=== PATIENT | female | born 1990 | race Caucasian/White ===

== ENCOUNTER 2017-08-19 19:31 | Emergency (ER) | payer OTHER ==
[2017-08-19 19:35] VITALS: BMI 38.1
--- NOTE | 2017-08-19 19:41 | PDOC ---
History of Present Illness - General Chief Complaint: Vaginal Bleeding Stated Complaint: VAGINAL BLEEDING (10WKS ) Time Seen by Provider: 08/19/17 19:40 - History of Present Illness Initial Comments: 08/19/17 20:31 The patient is a 27 year old 10 week female with no significant PMH who presents for evaluation of vaginal bleeding. The patient reports onset of intermittent vaginal spotting throughout the day prompting her presentation to the ED for further evaluation. She notes that she is in the process of transitioning care to her new OB and has not been worked up for her current yet. LMP 06/08/17. She notes that she has had a miscarriage in the past as well as 2 elective abortions. She otherwise denies fevers, chills, SOB , chest pain, nausea, vomiting, abdominal pain, or changes with urination or bowel movements. She notes that she is currently being treated for a UTI with macrobid. Past History - Past Medical History Allergies/Adverse Reactions: Allergies Allergy/AdvReac Type Severity Reaction Status Date / Time No Known Allergies Allergy Verified 08/19/17 19:35 Home Medications: Ambulatory Orders NK [No Known Home Medication] 08/19/17 - Suicide/Smoking/Psychosocial Hx Smoking History: Never smoked Have you smoked in the past 12 months: No Information on smoking cessation initiated: No Hx Alcohol Use: No Drug/Substance Use Hx: No Review of Systems - Review of Systems Comments:: 08/19/17 20:41 Constitutional: No fevers, chills, fatigue, malaise HEENT: No Rhinorrhea, nasal congestion, visual changes Cardiovascular: No chest pain, syncope, palpitations, lightheadedness Respiratory: No Cough, SOB, Hemoptysis, Gastrointestinal: No Abdominal pain, Nausea, Vomiting, Constipation, Diarrhea, Melena Genitourinary: Vaginal Bleeding. No Dysuria, Frequency, Urgency, Hesitancy, Hematuria, Flank pain Musculoskeletal: No Myalgia, arthralgia Skin: No rashes, itching, bruising, pallor Neurologic: No Headache, Dizziness, Numbness, Weakness, or Tingling Psychiatric: No Hallucinations. No SI or HI *Physical Exam - Vital Signs Last Vital Signs Temp Pulse Resp BP Pulse Ox 98.0 F 70 16 131/66 100 08/19/17 19:33 08/19/17 19:33 08/19/17 19:33 08/19/17 19:33 08/19/17 19:33 - Physical Exam Comments: 08/19/17 20:42 General Appearance: Nourished. No Apparent Distress HEENT: No Pharyngeal Erythema, Tonsillar Exudate, Tonsillar Erythema Neck: No Cervical Lymphadenopathy Respiratory/Chest: Lungs Clear, Normal Breath Sounds. No Crackles, Rales, Rhonchi, Wheezing Cardiovascular: Regular Rhythm, Regular Rate. No Murmur, Gallops, Rubs Gastrointestinal/Abdominal: Normal Bowel Sounds, Soft. No Guarding, Rebound, Tenderness Pelvic Exam: Normal External Exam. No blood noted in the vaginal vault. Closed Cervical Os. No CMT, No Adenexal Tenderness. Musculoskeletal: No CVA Tenderness Extremity: Normal Capillary Refill Integumentary: Normal Color, Dry, Warm Neurologic: Fully Oriented, Alert, Normal Mood/Affect, Normal Response, ED Treatment Course - LABORATORY CBC & Chemistry Diagram: 08/19/17 20:08 08/19/17 20:08 Medical Decision Making - Medical Decision Making 08/19/17 20:43 The patient is a 27 year old 10 week female with no significant PMH who presents for evaluation of vaginal bleeding. Differential includes but is not limited to: Threatened , Physiological Bleeding, Infectious, Metabolic derangement. Given the patient's history and physical exam, we will obtain a cbc, cmp, coags, type and screen, ua, beta quant, and transvaginal us to evaluate further. We will continue to monitor and reassess while here in the ED. 08/19/17 23:59 CBC, cmp, ua are unremarkable. Transvaginal US shows multiple gestational sacs with a possible yolk sac without any identifiable anatomy as read by our radiologist. The patient continues to remain asymptomatic at this time. She will need to follow up with her OB or return to the ER for repeat beta-quant testing. We are comfortable discharging the patient home at this time with ob follow up. We discussed the results, plan, and return precautions with the patient who voiced understanding and is agreeable with the plan. *DC/Admit/Observation/Transfer Diagnosis at time of Disposition: Vaginal bleeding - Discharge Dispostion Disposition: HOME Condition at time of disposition: Stable Decision to Admit order: No - Referrals Referrals: Laura Webb MD [Primary Care Provider] - - Patient Instructions Printed Discharge Instructions: DI for Vaginal Bleeding During Additional Instructions: Please return to the ER if you experience concerning or worsening symptoms including worsening vaginal bleeding or abdominal pain. Your lab results were normal here in the ER and your US results show a yolk sac and gestational sac, but no anatomy is noted. You will need to either come back to the ER or follow up with your OB on Monday to have your Beta HCG rechecked and to be re-evaluated. Please call to schedule a follow up appointment with your OB within 1-2 days. - Post Discharge Activity
[2017-08-19 20:23] LABS: BASO % 0.5 % (0-2.0); EOS % 3.3 % (0-4.5); HEMOGLOBIN 12.4 GM/dL (10.7-15.3); LYMPH % 30.5 % (8-40); MCH 26.6 pg (25.7-33.7); MCHC 32.7 g/dl (32.0-36.0); MEAN CELL VOLUME 81.4 fl (80-96); MONO % 5.2 % (3.8-10.2); NEUT % 60.5 % (42.8-82.8); PLATELET COUNT 209 K/MM3 (134-434); RBC 4.68 M/mm3 (3.60-5.2); RDW 14.5 % (11.6-15.6); WHITE BLOOD COUNT 10.7 K/mm3 (4.0-10.0)
[2017-08-19 20:24] LABS: URINE APPEARANCE CLEAR; URINE BILIRUBIN NEGATIVE (<2.0 mg/dL); URINE COLOR YELLOW; URINE GLUCOSE (UA) NEGATIVE (NEGATIVE); URINE KETONE NEGATIVE (NEGATIVE); URINE LEUK ESTERASE NEGATIVE (NEGATIVE); URINE NITRITE NEGATIVE (NEGATIVE); URINE PROTEIN NEGATIVE (NEGATIVE); URINE UROBILINOGEN NEGATIVE mg/dL (0.2-1.0)
[2017-08-19 20:31] LABS: INR 1.01 (0.82-1.09); PROTHROMBIN TIME (PATIENT) 11.4 SEC (9.7-13.0)
[2017-08-19 20:34] LABS: ACTIVATED PTT 28.1 SECONDS (25.2-36.5)
[2017-08-19 20:42] LABS: ALBUMIN 3.5 g/dl (3.4-5.0); ALK PHOS 53 U/L (45-117); ANION GAP 7 (8-16); BILIRUBIN,TOTAL 0.3 mg/dL (0.2-1.0); BLOOD UREA NITROGEN 9 mg/dL (7-18); CALCIUM 8.8 mg/dL (8.5-10.1); CHLORIDE 104 mmol/L (98-107); CO2 27 mmol/L (21-32); CREATININE 0.6 mg/dL (0.55-1.02); GLUCOSE,RANDOM 82 mg/dL (74-106); POTASSIUM 3.8 mmol/L (3.5-5.1); SGOT/AST 13 U/L (15-37); SGPT/ALT 18 U/L (12-78); SODIUM 138 mmol/L (136-145); TOT PROT 7.5 g/dl (6.4-8.2)
--- NOTE | 2017-08-19 22:27 | PDOC ---
Attending Attestation - Resident Resident Name: Alexandro Dixon - ED Attending Attestation I have performed the following: I have examined & evaluated the patient, The case was reviewed & discussed with the resident, I agree w/resident's findings & plan, Exceptions are as noted - HPI HPI: 08/19/17 22:05 Ms Machuca is an otherwise healthy 27 [id number] 10 week female (LMP ) who presents to the ER for evaluation of vaginal bleeding. (+) intermittent vaginal spotting throughout the day Not saturating pads No chest pain, no lightheadedness No fevers or chills She is currently being treated for a UTI with macrobid. - Physicial Exam PE: 08/19/17 22:27 General Appearance: Nourished. No Apparent Distress Respiratory/Chest: Lungs Clear, Normal Breath Sounds. Cardiovascular: Regular Rhythm, Regular Rate. No Murmur, Gallops, Rubs Gastrointestinal/Abdominal: Normal Bowel Sounds, Soft. No Guarding, Rebound, Tenderness Pelvic Exam: Normal External Exam. No blood noted in the vaginal vault. Closed Cervical Os. No CMT, No Adenexal Tenderness. Musculoskeletal: No CVA Tenderness Extremity: Normal Capillary Refill Integumentary: Normal Color, Dry, Warm Neurologic: Fully Oriented, Alert, Normal Mood/Affect, Normal Response - Medical Decision Making 08/19/17 22:29 Ms Machuca is a 27 yo F with vaginal bleeding Pt have labs, UA, Transvaginal US 08/19/17 22:30 Laboratory Tests 08/19/17 08/19/17 08/19/17 20:08 20:08 20:08 WBC 10.7 H Hgb 12.4 Hct 38.0 Plt Count 209 INR 1.01 Sodium 138 Potassium 3.8 Chloride 104 Carbon Dioxide 27 BUN 9 Creatinine 0.6 Random Glucose 82 Beta HCG, Quant Urine Blood Urine Nitrite Ur Leukocyte Esterase 08/19/17 08/19/17 20:08 20:08 WBC Hgb Hct Plt Count INR Sodium Potassium Chloride Carbon Dioxide BUN Creatinine Random Glucose Beta HCG, Quant 67185.7 Urine Blood Negative Urine Nitrite Negative Ur Leukocyte Esterase Negative 08/19/17 22:31 Laboratory Tests 08/19/17 20:08 Blood Type A POSITIVE 08/19/17 23:49 US: complex cystic structure in the endometrium, no anatomy, implantation bleed No ovarian pathology Will discharge to home Pt will follow up with her [facility] in 2 days OR come to the ER Return before then if saturating 2 pads/hour x 2 hours Clinical impression: threatened ab vs. early
[2017-08-19 22:46] VITALS: BP 120/69; PULSE 86; TEMP 98.1
== END 2017-08-19 23:57 | disposition home or self-care (01) ==
LOC: JER 19:31
DX: O26.891 Other specified pregnancy related conditions, first trimester (principal); O46.91 Antepartum hemorrhage, unspecified, first trimester; Z3A.10 10 weeks gestation of pregnancy
CPT/HCPCS: 36415; 76817-TC; 80053; 81003; 84702; 85025; 85610; 85730; 86850; 86900; 86901; 99283-25

== ENCOUNTER 2017-09-09 13:48 | Inpatient (IN) | payer OTHER ==
--- NOTE | 2017-09-09 14:04 | PDOC ---
History of Present Illness - General Stated Complaint: ABDOMINAL PAIN Time Seen by Provider: 09/09/17 14:04 History Source: Patient Exam Limitations: No Limitations - History of Present Illness Initial Comments: 09/09/17 14:26 The patient is a 27F with no PMH who presents to the ER with acute onset RLQ pain. The patient states that she had a medical with misoprostol 1 week ago. Last night, she describes an acute onset RLQ pain which is sharp, constant, and worsening, nonradiating, not exacerbated or alleviated by any factors including positioning. She states that she has an appetite but cannot eat anything. She denies fever, chills, nausea, vomiting, vaginal discharge, vaginal cramping. Past History - Past Medical History Allergies/Adverse Reactions: Allergies Allergy/AdvReac Type Severity Reaction Status Date / Time No Known Allergies Allergy Verified 09/09/17 14:12 Home Medications: Ambulatory Orders NK [No Known Home Medication] 08/19/17 - Suicide/Smoking/Psychosocial Hx Smoking History: Never smoked Have you smoked in the past 12 months: No Hx Alcohol Use: No Drug/Substance Use Hx: No Review of Systems - Review of Systems Able to Perform ROS?: Yes Comments:: 09/09/17 15:07 GENERAL/CONSTITUTIONAL: No fever or chills. No weakness. HEAD, EYES, EARS, NOSE AND THROAT: No change in vision. No ear pain or discharge. No sore throat. CARDIOVASCULAR: No chest pain, palpitations, or lightheadedness. RESPIRATORY: No cough, wheezing, shortness of breath, or hemoptysis. GASTROINTESTINAL: Positive for abdominal pain. No nausea, vomiting, diarrhea, constipation. GENITOURINARY: Positive for vaginal spotting. No dysuria, frequency, hematuria, or change in urination. MUSCULOSKELETAL: No joint or muscle swelling or pain. No neck or back pain. SKIN: No rash or lesions. NEUROLOGIC: No headache, numbness, tingling, weakness, loss of consciousness, or change in strength/sensation. ENDOCRINE: No increased thirst. No abnormal weight change. HEMATOLOGIC/LYMPHATIC: No anemia, easy bleeding, or history of blood clots. ALLERGIC/IMMUNOLOGIC: No hives or skin allergy. Is the patient limited Greek proficient: No *Physical Exam - Physical Exam Comments: 09/09/17 15:09 GENERAL: Well developed, well nourished. Awake and alert. No acute distress. HEENT: Normocephalic, atraumatic. Hearing grossly normal. Moist mucous membranes. PERRLA, EOMI. No conjunctival pallor. Sclera are non-icteric. NECK: Supple. Full ROM. CARDIOVASCULAR: Regular rate and rhythm. No murmurs, rubs, or gallops. PULMONARY: No evidence of respiratory distress. Lungs clear to auscultation bilaterally. No wheezing, rales or rhonchi. ABDOMINAL: Soft. TTP over RLQ and McBurney's point. Negative Jett's sign. Non- distended. No rebound or guarding. GENITOURINARY: No CVA tenderness bilaterally. PELVIC: Normal external genitalia. No CMT. No midline tenderness. Mild R adnexal tenderness. No L adnexal tenderness. MUSCULOSKELETAL: Normal range of motion at all joints. No bony deformities or tenderness. EXTREMITIES: No cyanosis. No clubbing. No edema. No calf tenderness or swelling. SKIN: Warm and dry. Normal capillary refill. No rashes. No jaundice. NEUROLOGICAL: Alert, awake, appropriate. Cranial nerves 2-12 intact. Normal speech. Gait is normal without ataxia. PSYCHIATRIC: Cooperative. Good eye contact. Appropriate mood and affect. ED Treatment Course - LABORATORY CBC & Chemistry Diagram: 09/09/17 14:20 09/09/17 14:20 Medical Decision Making - Medical Decision Making 09/09/17 15:11 The patient is a 27F who has recently had a medical 1 week ago. Her RLQ is likely 2/2 to a TOLL PATROLMAN pathology vs appendicitis (lower suspicion). Pending labs and repeat transvaginal US. US on 09/05 (4 days ago) reveals heterogenous content in uterus, described as blood by radiologist. Pt resting comfortably and not requiring pain control 09/09/17 18:44 US negative. Will give pain control as pain has worsened. Placed pt for CTAP as there is mild adnexal tenderness and her tenderness is more on McBurney's point. 09/09/17 20:05 Pt signed out to Dr. Corrigan, pending CTAP. *DC/Admit/Observation/Transfer - Referrals Referrals: Laura Webb MD [Primary Care Provider] - - Patient Instructions - Post Discharge Activity
[2017-09-09 14:30] LABS: BASO % 1.3 % (0-2.0); HEMATOCRIT 37.8 % (32.4-45.2); HEMOGLOBIN 12.3 GM/dL (10.7-15.3); LYMPH % 29.1 % (8-40); MCH 26.3 pg (25.7-33.7); MCHC 32.7 g/dl (32.0-36.0); MEAN CELL VOLUME 80.5 fl (80-96); MEAN PLT VOLUME 9.9 fl (7.5-11.1); MONO % 4.5 % (3.8-10.2); NEUT % 62.1 % (42.8-82.8); PLATELET COUNT 233 K/MM3 (134-434); RBC 4.69 M/mm3 (3.60-5.2); RDW 13.9 % (11.6-15.6); WHITE BLOOD COUNT 10.8 K/mm3 (4.0-10.0)
[2017-09-09 14:32] LABS: URINE APPEARANCE CLEAR; URINE BILIRUBIN NEGATIVE (<2.0 mg/dL); URINE COLOR YELLOW; URINE GLUCOSE (UA) NEGATIVE (NEGATIVE); URINE KETONE NEGATIVE (NEGATIVE); URINE LEUK ESTERASE NEGATIVE (NEGATIVE); URINE NITRITE NEGATIVE (NEGATIVE); URINE PROTEIN NEGATIVE (NEGATIVE); URINE UROBILINOGEN NEGATIVE mg/dL (0.2-1.0)
[2017-09-09 14:34] LABS: EPI CELLS RARE /HPF (FEW); URINE BACTERIA RARE /hpf (NONE SEEN); URINE MUCUS RARE
--- NOTE | 2017-09-09 14:47 | PDOC ---
Attending Attestation - Resident Resident Name: Ambrocio Jennings - ED Attending Attestation I have performed the following: I have examined & evaluated the patient, The case was reviewed & discussed with the resident, I agree w/resident's findings & plan, Exceptions are as noted - HPI HPI: 27 yo F history of medical (misoprostol) 1 week ago presents with RLQ abd pain x1 day. No other associated symptoms. She is tearful at times when talking about the , stating she felt unsupported by friends. She has had normal appetite, although some foods are making her feel nauseous. She presented to an urgent care prior to arrival, they referred her to ED for workup , as they do not have imaging capabilities. - Physicial Exam PE: GENERAL: Awake, alert, and fully oriented, in no acute distress. Tearful at times. HEAD: No signs of trauma EYES: PERRLA, EOMI, sclera anicteric, conjunctiva clear ENT: Auricles normal inspection, hearing grossly normal, nares patent, oropharynx clear without exudates. Moist mucosa NECK: Normal ROM, supple, no lymphadenopathy, JVD, or masses LUNGS: Breath sounds equal, clear to auscultation bilaterally. No wheezes, and no crackles HEART: Regular rate and rhythm, normal S1 and S2, no murmurs, rubs or gallops ABDOMEN: Soft, +RLQ tenderness with guarding, no rebound. Normoactive bowel sounds. No masses EXTREMITIES: Normal range of motion, no edema. No clubbing or cyanosis. No cords, erythema, or tenderness NEUROLOGICAL: Cranial nerves II through XII grossly intact. Normal speech, normal gait SKIN: Warm, Dry, normal turgor, no rashes or lesions noted. - Medical Decision Making 09/09/17 14:51 Pt is 1 week s/p medical (misoprostol) presents with RLQ abd pain. Denies N/V/D, f/c. DDx includes retained POCs, sequelae of , and appendicitis. Appendicitis would be lower on the differential based on the presentation, however, will consider if sono is wnl.
[2017-09-09 14:48] LABS: ALBUMIN 3.2 g/dl (3.4-5.0); ANION GAP 6 (8-16); BLOOD UREA NITROGEN 10 mg/dL (7-18); CALCIUM 8.7 mg/dL (8.5-10.1); CHLORIDE 109 mmol/L (98-107); CO2 27 mmol/L (21-32); GLUCOSE,RANDOM 87 mg/dL (74-106); SODIUM 142 mmol/L (136-145)
[2017-09-09 14:49] LABS: SGPT/ALT 19 U/L (12-78)
[2017-09-09 14:51] LABS: BILIRUBIN,TOTAL 0.4 mg/dL (0.2-1.0); CREATININE 0.7 mg/dL (0.55-1.02); TOT PROT 7.2 g/dl (6.4-8.2)
[2017-09-09 14:54] LABS: ALK PHOS 59 U/L (45-117)
[2017-09-09 14:55] LABS: SGOT/AST 31 U/L (15-37)
[2017-09-09] MEDS ORDERED: ACETAMINOPHEN 1000 MG/100 ML VIAL (NON FORMULARY) IVPB ONE (18:34)
--- NOTE | 2017-09-09 20:03 | PDOC ---
*Physical Exam - Vital Signs Last Vital Signs Temp Pulse Resp BP Pulse Ox 98.3 F 77 18 111/57 100 09/09/17 14:08 09/09/17 14:08 09/09/17 14:08 09/09/17 14:08 09/09/17 14:08 ED Treatment Course - LABORATORY CBC & Chemistry Diagram: 09/09/17 14:20 09/09/17 14:20 - ADDITIONAL ORDERS Additional order review: Laboratory Results 09/09/17 09/09/17 09/09/17 14:20 14:20 14:20 Sodium 142 Potassium 5.0 Chloride 109 H Carbon Dioxide 27 Anion Gap 6 L BUN 10 Creatinine 0.7 Creat Clearance w eGFR > 60 Random Glucose 87 Calcium 8.7 Total Bilirubin 0.4 AST 31 ALT 19 Alkaline Phosphatase 59 Total Protein 7.2 Albumin 3.2 L Beta HCG, Quant 115.6 Urine Color Yellow Urine Appearance Clear Urine pH 5.0 D Ur Specific [place] 1.021 Urine Protein Negative Urine Glucose (UA) Negative Urine Ketones Negative Urine Blood 2+ H Urine Nitrite Negative Urine Bilirubin Negative Urine Urobilinogen Negative Ur Leukocyte Esterase Negative Urine WBC (Auto) 2 Urine RBC (Auto) 5 Ur Epithelial Cells Rare Urine Bacteria Rare Urine Mucus Rare Blood Type A POSITIVE Antibody Screen Negative 09/09/17 14:20 RBC 4.69 MCV 80.5 MCHC 32.7 RDW 13.9 MPV 9.9 Neutrophils % 62.1 Lymphocytes % 29.1 Monocytes % 4.5 Eosinophils % 3.0 Basophils % 1.3 - Medications Given in the ED: ED Medications Discontinued Medications Generic Name Dose Route Start Last Admin Trade Name Dulce Maria PRN Reason Stop Dose Admin Acetaminophen 1,000 mg 09/09/17 18:34 09/09/17 19:05 Ofirmev Injection - IVPB 09/09/17 18:35 1,000 mg ONCE ONE Administration Medical Decision Making - Medical Decision Making 09/09/17 20:[address] Jennings. Ms. Machuca is a 27 yo female w/ pmh of medical with misoprostol 1 week ago who presents for acute onset sharp RLQ pain. Patient also reported appetite but says she "cannot eat anything." 09/05 US revealed heterogeneous content in uterus thought to be blood; TVUS today negative. Repeat exam significant for continued RLQ pain at McBurney's point - IV tylenol given and patient currently pending CT abdomen for further evaluation / r/o appendicitis. 09/09/17 23:00 Patient reporting generalized relief from pain after tylenol. CT abdomen discussed with radiologist who identified acute appendicitis of tip of appendix w/ mild periappendiceal infection - early appendix performation could not be excluded. Surgery paged. Ancef / flagyl given for treatment. 09/09/17 23:52 Patient admitted for further evaluation. Discussed with surgery who will evaluate. *DC/Admit/Observation/Transfer Diagnosis at time of Disposition: Appendicitis Qualifiers: Appendicitis type: acute appendicitis Acute appendicitis type: unspecified acute appendicitis type Qualified Code(s): K35.80 - Unspecified acute appendicitis - Discharge Dispostion Decision to Admit order: Yes - Referrals Referrals: Laura Webb MD [Primary Care Provider] - - Patient Instructions - Post Discharge Activity
[2017-09-09] MEDS ORDERED: morphine CARPU-JECT 2 MG/1 ML DISP.SYRIN IVPUSH ONE (23:11)
[2017-09-09] MEDS ORDERED: MORPHINE SULFATE 2 MG/ML VIAL ONE (23:13)
[2017-09-09] MEDS ORDERED: ceFAZolin 2 GRAM PREMIX BAG IVPB ONE (23:15)
[2017-09-09 23:55] LABS: INR 1.09 (0.82-1.09); PROTHROMBIN TIME (PATIENT) 12.3 SEC (9.7-13.0)
[2017-09-09 23:58] LABS: ACTIVATED PTT 32.1 SECONDS (25.2-36.5)
[2017-09-10] MEDS ORDERED: ceFAZolin SODIUM 1 GM VIAL ONE (00:15)
[2017-09-10 02:09] VITALS: BMI 38.9
[2017-09-10] MEDS ORDERED: CEFTRIAXONE 1 GM in DEXTROSE 5%-WATER - 50 ML IVPB ONE (03:12)
[2017-09-10] MEDS ORDERED: SODIUM CHLORIDE 1,000 ML IV SCH (03:15)
[2017-09-10] MEDS ORDERED: MORPHINE SULFATE 2 MG/ML VIAL IVPUSH PRN ×2 (03:20→09:50)
--- NOTE | 2017-09-10 03:24 | HP ---
CHIEF COMPLAINT: RUQ pain PCP: HISTORY OF PRESENT ILLNESS: patient is a 27 y/o female with no past medical history who presents with R Uq pain. She states the pain began on monday. She took a motrin which helped a little but the pain returned on monday. She describes it as a constant pain that is no radiating. Patient denies any nausea or vomiting. The tylenol she was given today helped with the pain. She denies ever having pain like this in the past. She has no acute complaints. ER course was notable for: (1) Cefazolin/ metronidazole (2) (3) Recent Travel: PAST MEDICAL HISTORY: none PAST SURGICAL HISTORY: none Social History: Smoking: Alcohol: Drugs: Family History: Allergies No Known Allergies Allergy (Verified 09/09/17 14:12) HOME MEDICATIONS: Home Medications Medication Instructions Recorded NK [No Known Home Medication] 08/19/17 REVIEW OF SYSTEMS CONSTITUTIONAL: Absent: fever, chills, diaphoresis, generalized weakness, malaise HEENT: Absent: rhinorrhea, nasal congestion, throat pain, throat swelling, difficulty swallowing, mouth swelling, ear pain, eye pain, visual changes CARDIOVASCULAR: Absent: chest pain, syncope, palpitations, irregular heart rate, lightheadedness , RESPIRATORY: Absent: cough, shortness of breath, dyspnea with exertion, orthopnea, GASTROINTESTINAL:abdominal pain Rq pain Absent: abdominal distension, nausea, vomiting, diarrhea, constipation, melena, hematochezia GENITOURINARY: Absent: dysuria, frequency, urgency, hesitancy, hematuria, flank pain, genital pain MUSCULOSKELETAL: Absent: myalgia, arthralgia, joint swelling, back pain, neck pain SKIN: Absent: rash, itching, pallor PSYCHIATRIC: Absent: anxiety, depression, suicidal or homicidal ideation, hallucinations. PHYSICAL EXAMINATION Vital Signs - 24 hr 09/09/17 09/09/17 09/09/17 14:08 22:37 23:04 Temperature 98.3 F 98.1 F 97.9 F Pulse Rate 77 Pulse Rate [ 80 67 Apical] Respiratory 18 20 20 Rate Blood Pressure 111/57 Blood Pressure 118/62 121/74 [Right Arm] O2 Sat by Pulse 100 100 100 Oximetry (%) 09/09/17 23:59 Temperature 97.9 F Pulse Rate 69 Pulse Rate [ Apical] Respiratory 20 Rate Blood Pressure 108/64 Blood Pressure [Right Arm] O2 Sat by Pulse 99 Oximetry (%) GENERAL: Awake, alert, and fully oriented, in no acute distress. HEAD: Normal with no signs of trauma. NECK: Normal range of motion LUNGS: Breath sounds equal, clear to auscultation bilaterally. HEART: Regular rate and rhythm, ABDOMEN: Soft, not distended, tender to palpation RLQ, no rebound tenderness MUSCULOSKELETAL: Normal range of motion at all joints. No bony deformities or tenderness. LOWER EXTREMITIES: warm, well-perfused. No calf tenderness. No peripheral edema. PSYCHIATRIC: Cooperative. Good eye contact. Appropriate mood and affect. SKIN: Warm, dry, normal turgor, no rashes or lesions noted, normal capillary refill. Laboratory Results - last 24 hr 09/09/17 09/09/17 09/09/17 14:20 14:20 14:20 WBC 10.8 H RBC 4.69 Hgb 12.3 Hct 37.8 MCV 80.5 MCH 26.3 MCHC 32.7 RDW 13.9 Plt Count 233 MPV 9.9 Absolute Neuts (auto) 6.7 Neutrophils % 62.1 Lymphocytes % 29.1 Monocytes % 4.5 Eosinophils % 3.0 Basophils % 1.3 Nucleated RBC % 0 PT with INR INR PTT (Actin FS) Sodium 142 Potassium 5.0 Chloride 109 H Carbon Dioxide 27 Anion Gap 6 L BUN 10 Creatinine 0.7 Creat Clearance w eGFR > 60 Random Glucose 87 Calcium 8.7 Total Bilirubin 0.4 AST 31 ALT 19 Alkaline Phosphatase 59 Total Protein 7.2 Albumin 3.2 L Beta HCG, Quant 115.6 Urine Color Yellow Urine Appearance Clear Urine pH 5.0 D Ur Specific [place] 1.021 Urine Protein Negative Urine Glucose (UA) Negative Urine Ketones Negative Urine Blood 2+ H Urine Nitrite Negative Urine Bilirubin Negative Urine Urobilinogen Negative Ur Leukocyte Esterase Negative Urine WBC (Auto) 2 Urine RBC (Auto) 5 Ur Epithelial Cells Rare Urine Bacteria Rare Urine Mucus Rare Blood Type Antibody Screen 09/09/17 09/09/17 14:20 23:30 WBC RBC Hgb Hct MCV MCH MCHC RDW Plt Count MPV Absolute Neuts (auto) Neutrophils % Lymphocytes % Monocytes % Eosinophils % Basophils % Nucleated RBC % PT with INR 12.30 INR 1.09 PTT (Actin FS) 32.1 Sodium Potassium Chloride Carbon Dioxide Anion Gap BUN Creatinine Creat Clearance w eGFR Random Glucose Calcium Total Bilirubin AST ALT Alkaline Phosphatase Total Protein Albumin Beta HCG, Quant Urine Color Urine Appearance Urine pH Ur Specific [place] Urine Protein Urine Glucose (UA) Urine Ketones Urine Blood Urine Nitrite Urine Bilirubin Urine Urobilinogen Ur Leukocyte Esterase Urine WBC (Auto) Urine RBC (Auto) Ur Epithelial Cells Urine Bacteria Urine Mucus Blood Type A POSITIVE Antibody Screen Negative ASSESSMENT/PLAN: patient is a 27 y/o female with no past medical history who presents with appendicitis. #Appendicitis - CT abd: acute appendacitis at tip of appendix, cannot rule out perforation - fluids NS @ 100 - Ceftriaxone 1 gm - Flagyl 500 mg q8 - f/u labs, type and screen - Dr. Mcguire consulted for surgery - morphine as needed for pain control - afebrile, vitals stable #DVT ppx - early ambulation Dispo: f/u after surgery Visit type - Emergency Visit Emergency Visit: No - New Patient This patient is new to me today: Yes Date on this admission: 09/10/17 - Critical Care Critical Care patient: No Hospitalist Screening - Colonoscopy Questionnaire Colonoscopy Questionnaire: Colonoscopy Questionnaire - Patient: 50 - 75 years old and never had a screening colonoscopy: Unknown History of colon or rectal polyps, or CA: Unknown History of IBD, Crohn's disease or UC: Unknown History of abdominal radiation therapy as a child: Unknown - Relative: 1 with colon or rectal CA, or polyps at age 60 or younger: Unknown Colon or rectal CA diagnosed at age 45 or younger: Unknown Multiple relatives with colon or rectal CA: Unknown - Outcome: Screening Result: Negative Screen
[2017-09-10] MEDS ORDERED: DEXTROSE 5%-WATER - 50 ML IVPB ONE (03:41)
[2017-09-10] MEDS ORDERED: cefTRIAXone SODIUM 1 GM VIAL ONE (03:41)
--- NOTE | 2017-09-10 04:08 | CONSULT ---
Consult Consult Specialty:: General Surgery Referred by:: Shekhar Reason for Consultation:: Appendicitis - History of Present Illness Chief Complaint: abdominal pain History of Present Illness: 27 yo female PMH morbid obesity, recent miscarriage presents with Right upper quadrant pain for 2 days. She states the pain began on monday. She took a motrin which helped a little but the pain returned on monday. She describes it as a constant pain that is no radiating. denies fever and chills. Patient denies any nausea or vomiting. The tylenol she was given today helped with the pain. She denies ever having pain like this in the past. We were asked to assess and treat. - History Source History Provided By: Patient, Medical Record Limitations to Obtaining History: No Limitations - Past Medical History Reproductive: Yes: Other (2 weeks ago miscarriage ) ...LMP: 07/08/17 ...: No - Alcohol/Substance Use Hx Alcohol Use: No History of Substance Use: reports: None - Smoking History Smoking history: Never smoked Have you smoked in the past 12 months: No - Social History ADL: Independent Place of : [facility] History of Recent Travel: No Home Medications - Allergies Allergies/Adverse Reactions: Allergies Allergy/AdvReac Type Severity Reaction Status Date / Time No Known Allergies Allergy Verified 09/09/17 14:12 - Home Medications Home Medications: Ambulatory Orders NK [No Known Home Medication] 08/19/17 Review of Systems - Review of Systems Constitutional: denies: Chills, Fever Eyes: denies: Blurred Vision, Double Vision, Recent Change in Vision HENT: denies: Difficult Swallowing, Throat Pain Neck: denies: Stiffness, Tenderness Cardiovascular: denies: Chest Pain, Palpitations Respiratory: denies: Cough, SOB Gastrointestinal: reports: Abdominal Pain. denies: Constipation, Diarrhea Genitourinary: denies: Discharge, Dysuria Breasts: reports: No Symptoms Reported. denies: Pain Musculoskeletal: denies: No Symptoms, Back Pain Integumentary: denies: Incision, Lesions Neurological: denies: Seizure, Syncope Endocrine: denies: Unexplained Weight Gain, Unexplained Weight Loss Hematology/Lymphatic: denies: Easily Bruised, Excessive Bleeding Psychiatric: denies: Anxiety, Depression Physical Exam Vital Signs: Vital Signs Temperature 97.9 F 09/09/17 23:59 Pulse Rate 69 09/09/17 23:59 Respiratory Rate 20 09/10/17 04:00 Blood Pressure 108/64 09/09/17 23:59 O2 Sat by Pulse Oximetry (%) 99 09/10/17 04:00 Vital Signs Period Temp Pulse Resp BP Sys/Jones Pulse Ox Last 24 Hr 97.9 F-98.3 F 67-80 18-20 108-121/57-74 99-100 Constitutional: Yes: Well Nourished, No Distress, Calm, Obese Eyes: Yes: Conjunctiva Clear, EOM Intact HENT: Yes: Atraumatic, Normocephalic Neck: Yes: Supple, Trachea Midline Cardiovascular: Yes: Regular Rate and Rhythm, S1, S2 Respiratory: Yes: Regular, CTA Bilaterally Gastrointestinal: Yes: Normal Bowel Sounds, Soft, Abdomen, Obese, Tenderness ( RLQ), Tenderness, Epigastrium, Tenderness, Rebound ...Rectal Exam: Yes: Deferred Renal/: No: CVA Tenderness - Left, CVA Tenderness - Right Musculoskeletal: No: Muscle Pain, Muscle Weakness Extremities: No: Cool, Cyanosis Edema: No Peripheral Pulses WNL: Yes Integumentary: No: Jaundice, Rash Neurological: Yes: Alert, Oriented Psychiatric: Yes: Alert, Oriented Labs: CBC, BMP 09/09/17 14:20 09/09/17 14:20 Imaging - Results Cat Scan: Report Reviewed, Image Reviewed Problem List - Problems (1) Appendicitis Assessment/Plan: 27yo female PMH obesity, recent miscarriage with Acute appendicitis NPO and IVF hydration IV antibitics Discussed with patient risks, benefits and alternatives of laparoscopic possible open appendectomy, including but not limited to bleeding, infection, injury to adjacent structures, leak or injury, intraabdominal abscess, need for further procedures, ; alternatives include antibiotics, delayed or no surgery - risks of this include failure of nonoperative therapy, perforation, sepsis, recurrence, . Patient desires to proceed with operation - will take to OR for above. Informed consent signed for same. Code(s): K37 - UNSPECIFIED APPENDICITIS Qualifiers: Appendicitis type: acute appendicitis Acute appendicitis type: unspecified acute appendicitis type Qualified Code(s): K35.80 - Unspecified acute appendicitis (2) Abdominal pain in female patient Code(s): R10.9 - UNSPECIFIED ABDOMINAL PAIN (3) Vaginal bleeding Code(s): N93.9 - ABNORMAL UTERINE AND VAGINAL BLEEDING, UNSPECIFIED (4) History of miscarriage, not currently Code(s): Z87.59 - PERSONAL HISTORY OF COMP OF PREG, CHLDBRTH AND THE PUERP
--- NOTE | 2017-09-10 04:51 | PN ---
Teaching Attending Note Name of Resident: Laura Keita ATTENDING PHYSICIAN STATEMENT I saw and evaluated the patient. Chart, data, imaging reviewed. I reviewed the resident's note and discussed the case with the resident. I agree with the resident's findings and plan as documented. SUBJECTIVE: 27 y/o morbidly obese woman with periumbilical abdominal pain which started on and persisted, no response of motrin. No clear causative factors. No radiation of pain. No diarrhea, nausea, or vomiting. Pt reports recent miscarriage. OBJECTIVE: Last Vital Signs Temp Pulse Resp BP Pulse Ox 97.9 F 69 20 108/64 99 09/09/17 23:59 09/09/17 23:59 09/10/17 04:00 09/09/17 23:59 09/10/17 04:00 general -nad, aaox3, morbidly obese heent -moist oral mucosa neck supple cv s1+s2+rrr chest clear abdomen -bs decreased, soft, obese, mild periumbilical tenderness, no rebound tenderness appreciated ext -no pedal edema Abnormal Lab Results 09/09/17 09/09/17 09/09/17 14:20 14:20 14:20 WBC 10.8 H Chloride 109 H Anion Gap 6 L Albumin 3.2 L Urine Blood 2+ H CT of abdomen and pelvis was + for acute appendicitis with periappendicial fluid ekg - reviewed ASSESSMENT AND PLAN: 27yo woman with acute appendicitis -admit to med/surg -surgery consult -npo -IV morphine for pain control -type and screen -pt, ptt -ceftriaxone 1g iv q24hrs, metronidazole 500mg iv q8hrs -iv fluid hydration -heparin sc for dvt ppx
[2017-09-10 08:06] LABS: HEMATOCRIT 34.8 % (32.4-45.2); HEMOGLOBIN 11.4 GM/dL (10.7-15.3); MCH 26.6 pg (25.7-33.7); MCHC 32.9 g/dl (32.0-36.0); MEAN CELL VOLUME 80.9 fl (80-96); MEAN PLT VOLUME 9.9 fl (7.5-11.1); PLATELET COUNT 198 K/MM3 (134-434); RDW 14.2 % (11.6-15.6); WHITE BLOOD COUNT 8.3 K/mm3 (4.0-10.0)
[2017-09-10] MEDS ORDERED: MIDAZOLAM HCL 2 MG/2 ML SINGLE DOSE VIAL ONE (08:24)
[2017-09-10] MEDS ORDERED: BUPIVACAINE HCL/PF 0.5% (5MG/ML) 10 ML VIAL ONE (08:34)
[2017-09-10] MEDS ORDERED: DEXAMETHASONE SOD PHOSPHATE 4 MG/1 ML VIAL ONE (08:36)
[2017-09-10] MEDS ORDERED: PROPOFOL 20 ML ONE (08:37)
[2017-09-10] MEDS ORDERED: LIDOCAINE HCL/PF 2% SDV 5ML VIAL ONE (08:37)
[2017-09-10] MEDS ORDERED: ROCURONIUM BROMIDE 50 MG/5 ML VIAL ONE (08:38)
[2017-09-10 08:39] LABS: ANION GAP 8 (8-16); BLOOD UREA NITROGEN 7 mg/dL (7-18); CALCIUM 8.2 mg/dL (8.5-10.1); CHLORIDE 107 mmol/L (98-107); CO2 25 mmol/L (21-32); CREATININE 0.8 mg/dL (0.55-1.02); GLUCOSE,RANDOM 87 mg/dL (74-106); SODIUM 140 mmol/L (136-145)
[2017-09-10] MEDS ORDERED: NEOSTIGMINE METHYLSULFATE 0.5 MG/ML - 10 ML MDV ONE (09:17)
[2017-09-10] MEDS ORDERED: GLYCOPYRROLATE 0.2 MG/1 ML VIAL ONE (09:17)
[2017-09-10] MEDS ORDERED: BUPIVACAINE HCL/PF 0.5% (5MG/ML) 10 ML VIAL IJ ONE (09:21)
[2017-09-10] MEDS ORDERED: ONDANSETRON 4 MG/2 ML VIAL IVPUSH PRN (09:34)
--- NOTE | 2017-09-10 09:39 | OP ---
Operative Note - Note: Operative Date: 09/10/17 Pre-Operative Diagnosis: Acute appendicitis Operation: Laparoscopic appendectomy Findings: inflammed appendix stuck to RLQ. no perforation noted. david aldridge. all counts correct. Post-Operative Diagnosis: Same as Pre-op Surgeon: Fox Mcguire Anesthesiologist/THERAPEUTIC MASSAGE TECHNICIAN: Esteban Hammond Anesthesia: General, Local Specimens Removed: appendix Estimated Blood Loss (mls): 10 Drains, Volume Out (mls): 300 (urine (casas removed)) Fluid Volume Replaced (mls): 400 (crystalloid) Operative Report Dictated: Yes
[2017-09-10] MEDS: SODIUM CHLORIDE 1,000 ML IV SCH (10:30)
--- NOTE | 2017-09-10 10:43 | OP ---
DATE OF OPERATION: 09/10/2017 PREOPERATIVE DIAGNOSIS: Acute appendicitis. POSTOPERATIVE DIAGNOSIS: Acute appendicitis. PROCEDURE: Laparoscopic appendectomy. ATTENDING SURGEON: Fox Mcguire MD LEAD CASHIER: No one. ANESTHESIOLOGIST: Esteban Hammond MD ANESTHESIA: General with local. Local consisted of 0.5% Marcaine; a total of 10 mL given in a block fashion at the port sites. ESTIMATED BLOOD LOSS: Less than 10 mL. INTRAVENOUS FLUID ADMINISTERED: 400 mL of crystalloid. NEWMAN: 300 mL of urine output. Newman removed postoperatively. SPECIMEN: Appendix. BRIEF FINDINGS: The patient had an inflamed appendix stuck to the right lower quadrant anterior abdominal wall. No perforation is noted. Qfrx-Elil-Fdigbz is noticed. All counts were correct postoperatively. INDICATION: The patient is a 27-year-old female presenting with right lower quadrant pain. CT confirmed the appendicitis. White count was slightly elevated at 10. She was having fevers. She was counseled regarding risks, benefits, and alternatives of laparoscopic appendectomy, signed informed consent, and was taken for the procedure. PROCEDURE: The patient was brought to the operating room. She was placed in supine position on the operating table. Lower extremities had SCDs placed to compression. Patient was induced to general anesthesia, endotracheally intubated, at which point we proceeded with a formal timeout, identifying the operative site and procedure. We then, with all parties in agreement, began with an infraumbilical approach, Fernando. A 15 blade scalpel was used to incise the skin. It was deepened through subcutaneous tissue using Bovie cautery. Retractors were placed to allow for inspection of the anterior lower midline fascia. It was opened with cautery and then elevated. Blunt entry was made into the abdominal cavity and a 12-mm Fernando was used to establish a pneumoperitoneum of 15 mmHg. Upon inspection, it was clear that the appendix was adherent to the right lower quadrant anteriorly. The tip did not appear perforated. There was a small amount of green fluid, which was suctioned from the abdomen. The uterus was also identified, along with the right ovary, which appeared to be atraumatic and uninvolved with the process. The remainder of the abdominal cavity organ and viscera appeared normal. Additional port sites at the suprapubic position as well as the left lower quadrant were installed under direct visualization, 5-mm ports. We then proceeded with grasping the appendix midbody, removing it from its attachment at the right lower quadrant. A plane was developed between the mesoappendix and the appendix. The camera was re-sighted. A white load EndoGIA, size 30-mm was used to then transect the mesoappendix, leaving the remainder of the base of the appendix on the cecum. It was then transected with a blue load, 30-mm, laparoscopic EndoGIA. We then retrieved the inflamed appendix from the abdomen with an EndoCatch bag from the umbilical port. The pneumoperitoneum was relieved after trocars removed under direct visualization. Care was then taken to close the anterior abdominal fascia with 0 Vicryl in a [id number]. The port sites were cleaned and closed with 4-0 Monocryl in interrupted fashion at the 5-mm trocar sites and running subcuticular at the infraumbilical incision. The skin was cleaned, sterile dressings were placed, including Steri-Strips, Tegaderm, and gauze sponges. The patient was awoken from general anesthesia, having tolerated the procedure well. Newman was removed postoperatively. MD BANDAR Navarro/[id number]
[2017-09-10] MEDS ORDERED: IBUPROFEN 600 MG TABLET (FP) PO PRN (14:20)
--- NOTE | 2017-09-10 16:04 | PN ---
Progress Note (short form) - Note Progress Note: Subjective: abd pain, no fever or chills . no flatus yet Objective: Vital Signs: Last Vital Signs Temp Pulse Resp BP Pulse Ox 98.1 F 68 18 98/41 97 09/10/17 14:39 09/10/17 14:39 09/10/17 14:39 09/10/17 14:39 09/10/17 11:50 Laboratory Results - last 24 hr 09/09/17 09/10/17 09/10/17 23:30 06:15 06:15 WBC 8.3 RBC 4.30 Hgb 11.4 Hct 34.8 MCV 80.9 MCH 26.6 MCHC 32.9 RDW 14.2 Plt Count 198 MPV 9.9 PT with INR 12.30 INR 1.09 PTT (Actin FS) 32.1 Sodium 140 Potassium 4.0 Chloride 107 Carbon Dioxide 25 Anion Gap 8 BUN 7 Creatinine 0.8 Creat Clearance w eGFR > 60 Random Glucose 87 Calcium 8.2 L Blood Type Antibody Screen 09/10/17 06:15 WBC RBC Hgb Hct MCV MCH MCHC RDW Plt Count MPV PT with INR INR PTT (Actin FS) Sodium Potassium Chloride Carbon Dioxide Anion Gap BUN Creatinine Creat Clearance w eGFR Random Glucose Calcium Blood Type A POSITIVE Antibody Screen Negative Physical Exam: NAD Cv : RRR Lungs: CTAB ext: no edema Abd:soft, ND, TTP in all quadrants. hypoactive BS Assessment/Plan: 27 y/o lady with recent miscarriage , who presented with RLQ abd painand was found tohave acute appendicitis . 1- Acute appendicitis : s/p appendectomy today cont to have pain, no flatus . difficult to maneuver in bed - cont pain control - IVF - DC abx - ambulation dc home tomorrow Visit type - Emergency Visit Emergency Visit: Yes ED Registration Date: 09/09/17 Care time: The patient presented to the Emergency Department on the above date and was hospitalized for further evaluation of their emergent condition. - New Patient This patient is new to me today: Yes Date on this admission: 09/10/17 - Critical Care Critical Care patient: No
[2017-09-10] MEDS: oxyCODONE HCL 5 MG TABLET PO PRN (16:44)
[2017-09-10] MEDS: HEPARIN NA (PORCINE) 5,000 UNITS/ML 1ML VIAL SQ SCH (21:10)
[2017-09-11] MEDS ORDERED: CEFTRIAXONE 1 GM in DEXTROSE 5%-WATER - 50 ML IVPB SCH (03:00)
[2017-09-11] MEDS ORDERED: CEFTRIAXONE 1 GM in DEXTROSE 5%-WATER 100 ML IVPB SCH (03:00)
[2017-09-11] MEDS: HEPARIN NA (PORCINE) 5,000 UNITS/ML 1ML VIAL SQ SCH ×2 (05:41→14:46)
[2017-09-11 07:42] LABS: HEMATOCRIT 34.4 % (32.4-45.2); HEMOGLOBIN 11.3 GM/dL (10.7-15.3); MCH 26.4 pg (25.7-33.7); MEAN PLT VOLUME 9.8 fl (7.5-11.1); PLATELET COUNT 214 K/MM3 (134-434); RDW 13.8 % (11.6-15.6); WHITE BLOOD COUNT 11.6 K/mm3 (4.0-10.0)
--- NOTE | 2017-09-11 08:51 | PN ---
Teaching Attending Note Name of Resident: Laura Keita ATTENDING PHYSICIAN STATEMENT I saw and evaluated the patient. I reviewed the resident's note and discussed the case with the resident. I agree with the resident's findings and plan as documented. SUBJECTIVE: abd pain is better . slept all night . tolerating regualr diet OBJECTIVE: NAD Cv : RRR Lungs: CTAB ext: no edema Abd:soft, ND, minimal TTP in all quadrants. NL BS. no rebound tenderness or guarding. laparoscopic wounds with bandages Assessment/Plan: 27 y/o lady with recent miscarriage , who presented with RLQ abd painand was found tohave acute appendicitis . 1- Acute appendicitis : s/p appendectomy yesterday tolerated diet Ibuprofen for pain at dc Ambulating 2- recent mis-carriage, US noted. instructed to follow with her trailer assembler for repeat US to ensure no residual material in uterus. No vaginal spotting or bleeding . she stated to understand dc home today
[2017-09-11] MEDS: oxyCODONE HCL 5 MG TABLET PO PRN (09:22)
--- NOTE | 2017-09-11 09:27 | PN ---
Progress Note, Physician Chief Complaint: abdominal pain History of Present Illness: 27 yo female PMH morbid obesity, recent miscarriage presents with Right upper quadrant pain for 2 days. She states the pain began on monday. stable overnight , voiding, tolerating her diet. pain is adequately controlled. - Current Medication List Current Medications: Active Medications Heparin Sodium (Porcine) (Heparin -) 5,000 unit SQ TID [facility] Last Admin: 09/11/17 05:41 Dose: 5,000 unit Sodium Chloride (Normal Saline -) 1,000 mls @ 100 mls/hr IV ASDIR [facility] Last Admin: 09/10/17 10:30 Dose: 0 mls Ibuprofen (Motrin -) 600 mg PO Q6H PRN PRN Reason: PAIN LEVEL 1-5 Last Admin: 09/10/17 21:10 Dose: 600 mg Oxycodone HCl (Roxicodone -) 5 mg PO Q6H PRN PRN Reason: PAIN LEVEL 6-10 Last Admin: 09/11/17 09:22 Dose: 5 mg - Objective Vital Signs: Vital Signs Temperature 98.7 F 09/11/17 06:00 Pulse Rate 66 09/11/17 06:00 Respiratory Rate 18 09/11/17 06:00 Blood Pressure 104/47 09/11/17 06:00 O2 Sat by Pulse Oximetry (%) 97 09/10/17 11:50 Vital Signs Period Temp Pulse Resp BP Sys/Jones Pulse Ox Last 24 Hr 97.5 F-99.1 F 60-84 16-18 98-1117/41-68 97-100 Constitutional: Yes: No Distress, Calm, Obese Eyes: Yes: Conjunctiva Clear, EOM Intact HENT: Yes: Atraumatic, Normocephalic Neck: Yes: Supple, Trachea Midline Cardiovascular: Yes: Regular Rate and Rhythm, S1, S2 Respiratory: Yes: Regular, CTA Bilaterally Gastrointestinal: Yes: Normal Bowel Sounds, Soft, Abdomen, Obese Genitourinary: No: CVA Tenderness - Left, CVA Tenderness - Right Wound/Incision: Yes: Clean/Dry, Well Approximated, Dressing Dry and Intact Neurological: Yes: Alert, Oriented Psychiatric: Yes: Alert, Oriented Labs: CBC, BMP 09/11/17 06:10 09/10/17 06:15 INR, PTT INR 1.09 (0.82-1.09) 09/09/17 23:30 Problem List - Problems (1) Appendicitis Assessment/Plan: 27yo female PMH obesity, recent miscarriage POD#1 s/p Lap Appendectomy for acute appendicitis Diet as tolerated encourage IS OOB ambulate Discharge planning f/u plan is detailed Code(s): K37 - UNSPECIFIED APPENDICITIS Qualifiers: Appendicitis type: acute appendicitis Acute appendicitis type: unspecified acute appendicitis type Qualified Code(s): K35.80 - Unspecified acute appendicitis (2) Abdominal pain in female patient Code(s): R10.9 - UNSPECIFIED ABDOMINAL PAIN (3) Vaginal bleeding Code(s): N93.9 - ABNORMAL UTERINE AND VAGINAL BLEEDING, UNSPECIFIED (4) History of miscarriage, not currently Code(s): Z87.59 - PERSONAL HISTORY OF COMP OF PREG, CHLDBRTH AND THE PUERP
--- NOTE | 2017-09-11 10:24 | EKG ---
Test Reason : Blood Pressure : / mmHG Vent. Rate : 063 BPM Atrial Rate : 063 BPM P-R Int : 132 ms QRS Dur : 074 ms QT Int : 424 ms P-R-T Axes : 046 005 014 degrees QTc Int : 433 ms NORMAL SINUS RHYTHM POSSIBLE LEFT ATRIAL ENLARGEMENT ABNORMAL ECG NO PREVIOUS ECGS AVAILABLE Confirmed by RANJEET BINGHAM MD ([id number]) on 09/11/2017 10:24:45 AM Referred By: Confirmed By:RANJEET BINGHAM MD
--- NOTE | 2017-09-11 13:12 | DS ---
Physical Exam: SUBJECTIVE: patient is a 27 y/o female with no past medical history who presents with appendicitis. Patient is s/p appendectomy day 1. Patient reports she feels okay with slight pain. No complaints for today. OBJECTIVE: Vital Signs Period Temp Pulse Resp BP Sys/Jones Pulse Ox Last 24 Hr 98.1 F-99.1 F 66-72 18-20 98-115/41-60 PHYSICAL EXAM GENERAL: Awake, alert, and fully oriented, in no acute distress. HEAD: Normal with no signs of trauma. NECK: Normal range of motion LUNGS: Breath sounds equal, clear to auscultation bilaterally. HEART: Regular rate and rhythm, ABDOMEN: Soft, not distended, 3 incision sites covered and dresses MUSCULOSKELETAL: Normal range of motion at all joints. No bony deformities or tenderness. LOWER EXTREMITIES: warm, well-perfused. No calf tenderness. No peripheral edema. PSYCHIATRIC: Cooperative. Good eye contact. Appropriate mood and affect. SKIN: Warm, dry, normal turgor, no rashes or lesions noted, normal capillary refill. LABS Laboratory Results - last 24 hr 09/11/17 06:10 WBC 11.6 H RBC 4.30 Hgb 11.3 Hct 34.4 MCV 80.0 MCH 26.4 MCHC 33.0 RDW 13.8 Plt Count 214 MPV 9.8 HOSPITAL COURSE: Date of Admission:09/09/17 Patient is a 27 y/o female with no past medical history who presented with RUQ pain. Abd/pelvis CT: acute appendicitis, small amount of nonspecific free fluid is noted within cul-de-sac. Patient afebrile with no white count. Appendectomy preformed 09/12. Patient able to tolerate food and pass gas. Patient stable to go home Patient will follow up with Dr. Mcguire in two weeks. Patient will follow up with PCP in one week. Patient had recent miscarriage. Trasnvaginal US : nonspecific heterogeneous material in canal Date of Discharge: 09/11/17 Minutes to complete discharge: 35 Discharge Summary Reason For Visit: APPENDICITIS Condition: Improved - Instructions Diet, Activity, Other Instructions: Postoperative instructions: You had a laparoscopic appendectomy on 09/10/[address] Fox Mcguire of [facility]. Activity: Resume your usual activities gradually, but no heavy exertion or lifting more than 10-15 pounds for 1 month. Remove dressings 48 hours after surgery; sticky tapes underneath will fall off by themselves. You may shower daily starting then, just pat the incision areas dry. Eat lightly at first, but advance to your usual diet as tolerated. Pain: For pain, you may use and alternate Tylenol (acetaminophen) and/or ibuprofen every 6 hours each as needed; this means that you can take one OR the other at 3-hour intervals. Do not take more than 4000mg of acetaminophen in a day. Take medications as prescribed or indicated on the labeling. Follow-up: Call Dr. Mcguire' office at [phone] to make your postop appointment (Monday ~2 weeks after surgery). Clinic is held in the Diagnostic Center on the first floor of [facility]. Call the office if you have: * increasing pain not responsive to pain medication * fever of 101F or higher * vomiting * unusual or increasing bleeding or drainage from wounds * increasing redness or swelling at wound sites * inability to urinate Also, see your primary medical doctor within 1-2 weeks. Please use the incentive spirometer at least ten times every hour. Please return to the hospital if you have any worsening of symptoms, chest pain , SOB, fever, or vomiting. You need to see your flowers salesperson, in 1 week for repeat US of uterus to make sure no residual is there Referrals: Fox Mcguire MD [Staff Physician] - 2 Weeks Laura Webb MD [Primary Care Provider] - 1 Week Disposition: HOME - Home Medications Comprehensive Discharge Medication List: Ambulatory Orders Ibuprofen 400 mg PO Q8H #30 tablet 09/11/17 This patient is new to me today: No Emergency Visit: No Critical Care patient: No - Discharge Referral Referred to [facility] Med P.C.: No
--- NOTE | 2017-09-11 14:05 | PN ---
Progress Note (short form) - Note Progress Note: Post op day#1.s/p Laproscopic appendectomy under GA uneventful.Patient stable.No any anesthesia related problem.Patient Dc from the anesthesia care.
[2017-09-11] MEDS ORDERED: PT OWN MED DRAWER 7, Y5N ONE (14:43)
[2017-09-11] MEDS: SODIUM CHLORIDE 1,000 ML IV SCH (14:47)
[2017-09-11 17:25] VITALS: BP 110/70; PULSE 76; TEMP 98.8
--- NOTE | 2017-09-12 16:08 | PATH ---
Surgical Pathology Report Patient Name: YG ELMORE I. Med. Rec. #: [id number] /Age/Gender: 1990 (Age: 27) / F Account: [id number] Location: [facility] MED/SURG Taken: 09/10/2017 Received: 09/11/2017 Reported: 09/12/2017 Physicians: Fox Mcguire M.D. PHYSICIAN EMERGENCY DEPT Specimen(s) Received APPENDIX Clinical History Acute appendicitis Final Diagnosis APPENDIX, LAPAROSCOPIC APPENDECTOMY: ACUTE APPENDICITIS AND PERIAPPENDICITIS. Electronically Signed Laura Daily M.D. Gross Description Received in formalin labeled "appendix" it is a portion of appendix measuring 5 cm in length and up to 0.8 cm in greatest diameter. Focal white exudate present at the serosal surface near the appendiceal tip. The appendiceal lumen is patent with focal thickened wall measuring 0.4 cm in thickness. Treatment Manager sections are submitted in one cassette. KAREEM/09/11/2017 kathe/09/11/2017
== END 2017-09-11 17:41 | disposition home or self-care (01) | DRG 225 ==
LOC: JER 13:48 → JERBED 23:59 → J8W 09-10 01:32
PROVIDERS: ADMIT Internal Medicine; ATTEND Internal Medicine
PROC: 0DTJ4ZZ Resection of Appendix, Percutaneous Endoscopic Approach (ICD-10-PCS; principal; 2017-09-10 08:30)
DX: K35.80 Unspecified acute appendicitis (principal); R10.11 Right upper quadrant pain; Z68.38 Body mass index [BMI] 38.0-38.9, adult; E66.01 Morbid (severe) obesity due to excess calories
CPT/HCPCS: 36415; 74177-TC; 76817-TC; 80048; 80053; 81003; 81015; 84702; 85025; 85027; 85610; 85730; 86850; 86900; 86901; 88304-TC; 93005; 93010; 94760; 99284-25; J0131; J1644; J7030